=== PATIENT | male | born 1945 | race Caucasian/White ===

== ENCOUNTER 2018-02-25 09:15 | Emergency (ER) | payer MEDICARE, OTHER ==
[2018-02-25] MEDS ORDERED: Ondansetron HCl/PF 4 MG/2 ML Vial ONE (09:47)
[2018-02-25] MEDS ORDERED: Ketorolac Tromethamine 30 MG/ML VIAL ONE (09:47)
[2018-02-25] MEDS ORDERED: Morphine 4 MG/ML VIAL ONE ×2 (09:47→10:42)
[2018-02-25 10:08] LABS: #Basophils 0.1 thou/uL (0.0-0.2); #Eosinphils 0.1 thou/uL (0.0-0.7); #Lymphocytes 0.6 thou/uL (1.20-3.40); #Monocytes 0.5 thou/uL (0.11-0.59); #Neutrophils 4.1 thou/uL (1.40-6.50); %Basophils 1.1 % (0.0-1.0); %Eosinophils 1.7 % (0.0-10.0); %Monocytes 9.6 % (0.0-10.0); %Neutrophils 75.7 % (42.0-75.0); Hemoglobin 15.4 g/dL (14.0-18.0); Mean Corpuscular HGB CONC 34.5 g/dL (32.0-36.0); Mean Corpuscular Hemoglobin 33.2 pg (27.0-31.0); Mean Platelet Volume 7.8 fL (7.4-10.4); Platelet Count 145 thou/uL (130-400); RBC Distribution Width 11.6 % (11.5-14.5); Red Blood Cell (RBC) Count 4.65 mill/uL (4.70-6.10); White Blood Cell (WBC) Count 5.4 thou/uL (4.8-10.8)
[2018-02-25 10:24] LABS: Bilirubin Negative (Negative); Blood, Urine Small (Negative); Clarity CLEAR (Clear); Glucose, Urine (Dipstick) Negative (Negative); Leukocyte Negative (Negative); Nitrite Negative (Negative); Protein, Urine (Dipstick) Negative (Neg-Trace); Specific Gravity, Urine 1.008 (1.002-1.036); Urobilinogen 0.2 mg/dL (0.2-1.0)
[2018-02-25 10:25] LABS: ALT (SGPT) 35 U/L (8-55); AST (SGOT) 27 U/L (5-34); Albumin 4.3 g/dL (3.4-4.8); Alkaline Phosphatase 88 U/L (40-150); Anion Gap 12 mmol/L (10-20); BUN (Urea Nitrogen) 29 mg/dL (8.4-25.7); Bilirubin, Total 1.2 mg/dL (0.2-1.2); Calc. Creatinine Clearance 0 mL/min (70-130); Calcium 9.3 mg/dL (7.8-10.44); Carbon Dioxide 25 mmol/L (23-31); Chloride 108 mmol/L (98-107); Estimated GFR-MDRD 66; Globulin 2.9 g/dL (2.4-3.5); Glucose 121 mg/dL (83-110); Potassium 3.9 mmol/L (3.5-5.1); Protein, Total 7.2 g/dL (5.8-8.1); Sodium 141 mmol/L (136-145)
[2018-02-25 10:27] LABS: Bacteria/HPF None Seen HPF (None Seen); Hyaline Casts/LPF 0-3 HYALINE CAST LPF (0-3 Hyaline); Squamous Epithelial None Seen HPF (0-3); WBC/HPF None Seen HPF (0-3)
--- NOTE | 2018-02-25 11:13 | CT ---
ABDOMEN AND PELVIS CT SCAN WITHOUT IV CONTRAST: HISTORY: A 72-year-old male with a history of left flank pain with a history of prior kidney stones. No evide nce for fever. COMPARISON: 09/20/2012 FINDINGS: The lung bases are clear. The visualized liver, gallbladder, pancreas, spleen, and adrenal glands ar e unremarkable as evaluated without IV contrast. There is an obstructing 0.6 x 0.8 cm proximal left ureteral calculus with proximal hydronephrosis, as well as some fairly prominent perirenal fat strand ing. There are at least two right renal cysts, the largest one measures 5.3 cm, showing a definite i ncrease in size from the prior CT study, at which time it was 3.4 cm. In addition, there appears to be a new small, approximately 1 cm in diameter, exophytic, nodular density off the superolateral aspe ct of the left kidney, with indeterminate coefficients. This cannot be adequately characterized on t his study and could represent a developing complicated cyst or possibly a very small solid mass. 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 Tiny, nonobstructi ng bilateral renal calculi. Again noted is a nonaggressive appearing fatty mass within the left hip musculature, gluteus medius muscle, measuring 6.7 x 9.4 x 10.6 cm in size, where it previously measur ed 8.5 x 4.7 x 10.4 cm, indicating some minimal growth. Bilateral fat-containing inguinal hernias. Urinary bladder is unremarkable. Very minimal residual fat stranding in the region around the sigmoi d colon, evidence for resolved diverticulitis. IMPRESSION: 1. Proximal left ureteral calculus with obstruction. 2. Tiny nonobstructing renal calculi. 3. Several right-sided renal cysts, one of which shows definite enlargement since the prior study. 4. Development of a 1 cm in diameter exophytic, nodular focus off the superolateral aspect of the le ft kidney, not adequately characterized on this study. Consideration for a nonemergent follow-up CT urogram for further assessment of this, after the acute left ureteral calculus issue has been resolve d. 5. Slightly enlarging left gluteal nonaggressive appearing fatty mass. 6. Fat-containing inguinal hernias. 7. Other findings as above. POS: [facility]
== END 2018-02-25 12:07 | disposition home or self-care (01) ==
LOC: ERS 09:15
DX: N13.2 Hydronephrosis with renal and ureteral calculous obstruction (principal); I10 Essential (primary) hypertension; Z79.899 Other long term (current) drug therapy; Z79.82 Long term (current) use of aspirin
CPT/HCPCS: 74176; 80053; 81003; 81015; 85025; 87086; 96361; 96374; 96375; 96376; J1885; J2270; J2405